=== PATIENT | female | born 1965 | race Asian ===

== ENCOUNTER → 2019-12-25 | Outpatient (CLI) | payer MEDICAID ==
[~2019-12-25] VITALS: Ht 162.6 cm; Wt 59.9 kg
[2019-12-25 14:31] VITALS: BP 113/66
--- NOTE | 2019-12-30 16:29 | Consultation ---
DATE OF CONSULTATION: 12/25/2019 CHIEF COMPLAINT: Referral for evaluation of cirrhosis. HISTORY OF PRESENT ILLNESS: The patient is a 54-year-old female, poor historian, apparently had liver cirrhosis. The patient reports she is here for followup for that. PAST MEDICAL HISTORY: 1. Abnormal liver function tests. 2. Depression. 3. Hemorrhoids. 4. Bladder cyst. 5. Hyperplastic colonic polyps. PAST SURGICAL HISTORY: Cystoscopy. MEDICATIONS: Please see medication reconciliation list. ALLERGIES: No known drug allergies. FAMILY HISTORY: Noncontributory. SOCIAL HISTORY: The patient denies any tobacco, alcohol, or drug abuse. REVIEW OF SYSTEMS: Positive for right upper quadrant abdominal pain. Past colonoscopy in 2019, we do no have the records. The patient complains of nausea, some bloating. PHYSICAL EXAMINATION: VITAL SIGNS: Temperature 97.8, blood pressure is 103/66, pulse 71, respirations 20 HEENT: Normocephalic and atraumatic. Sclerae anicteric. NECK: Supple. No evidence of obvious lymphadenopathy. CARDIOVASCULAR: Regular rate and rhythm. Plus S1-S2. LUNGS: Clear to auscultation bilaterally. ABDOMEN: Positive bowel sounds. Soft and nontender. No rebound. No guarding. No peritoneal sign. EXTREMITIES: No cyanosis, no clubbing, no edema. ASSESSMENT AND PLAN: The patient is a 54-year-old female was referred to us for evaluation of cirrhosis without having any records on her. The patient was told to bring the records. We also going to try to get the records from Dr. Eisenberg's office and the patient to come back next visit for followup. Jacob Le M.D. DR: Maribel JOB#: [id number] CC:
== END | disposition home or self-care (01) ==
LOC: PAN 14:13
DX: K64.9 Unspecified hemorrhoids (principal)
CPT/HCPCS: G0463

== ENCOUNTER 2020-02-17 10:06 | Outpatient (CLI) | payer MEDICAID ==
--- NOTE | 2020-02-17 14:49 | General Progress Note ---
Subjective ROS Limited/Unobtainable: Yes Allergies: Coded Allergies: No Known Allergies (Unverified , 12/25/19) Objective General Appearance: alert EENT: normal ENT inspection Neck: supple Cardiovascular: normal rate Respiratory/Chest: decreased breath sounds Abdomen: normal bowel sounds, non tender, soft Extremities: non-tender Assessment/Plan Assessment/Plan: 1. Abnormal liver function tests. 2. Depression. 3. Hemorrhoids. 4. Bladder cyst. 5. Hyperplastic colonic polyps per patient has had recent colonoscopy wants flex sig and banding pending authorization Jacob Le MD Feb 17, 2020 14:49
== END 2020-02-17 12:06 | disposition home or self-care (01) ==
LOC: PAN 10:06
DX: K63.5 Polyp of colon (principal); F32.9 Major depressive disorder, single episode, unspecified; K64.9 Unspecified hemorrhoids; R94.5 Abnormal results of liver function studies; N32.89 Other specified disorders of bladder
CPT/HCPCS: 99212